=== PATIENT | female | born 1955 | race Two or more races ===

== ENCOUNTER 2016-12-15 18:26 | Emergency (ER) | payer SELFPAY ==
[2016-12-15] MEDS ORDERED: ONDANSETRON 4 MG/2ML 2 ML VIAL ONE (19:12)
[2016-12-15] MEDS ORDERED: SODIUM CHLORIDE 0.9% 500 ML ONE (19:12)
[2016-12-15] MEDS ORDERED: FAMOTIDINE 10 MG/ML 2ML VIAL ONE (19:12)
[2016-12-15] MEDS ORDERED: MAALOX/LIDO2%VISC/SIMETHICONE 40 ML BOT ONE (19:12)
[2016-12-15 19:44] LABS: URINE BILIRUBIN NEGATIVE (NEGATIVE); URINE BLOOD 3+ (NEGATIVE); URINE GLUCOSE (UA) NEGATIVE (NEGATIVE); URINE LEUKOCYTE ESTERASE 1+ (NEGATIVE); URINE NITRITE POSITIVE (NEGATIVE); URINE PROTEIN NEGATIVE (NEGATIVE); URINE UROBILINOGEN NORMAL (0-1 mg/dl)
[2016-12-15 19:45] LABS: ABSOLUTE NEUTROPHIL COUNT 4.9 K/mm3 (1.8-7.7); BASO # 0.1 K/mm3 (0.0-0.2); BASO % 0.6 % (0.2-1.0); EOS # 0.3 (0.0-0.5); EOS % 3.2 % (0.9-2.9); HEMATOCRIT 32.6 % (37.0-47.0); HEMOGLOBIN 10.6 gm/l (12.0-16.0); IMM NEUT% 0.3 % (0-1); LYMPH # 1.5 (1.0-4.8); LYMPH % 19.2 % (15-45); MEAN CELL VOLUME 82.1 fl (81.0-99.0); MEAN CORPUSCULAR HEMOGLOBIN 26.7 pg (27.0-31.0); MEAN CORPUSCULAR HGB CONC 32.5 g/dl (33.0-37.0); MEAN PLATELET VOLUME 8.8 fl (7.4-10.4); MONO # 1.1 (0.0-0.8); MONO % 13.8 % (4-12); NEUT % 62.9 % (43-75); PLATELET COUNT 484 K/mm3 (130-400); RED CELL DISTRIBUTION WIDTH 19.5 % (11.5-14.5)
[2016-12-15 19:46] LABS: URINE APPEARANCE CLEAR; URINE COLOR YELLOW
[2016-12-15 20:00] LABS: URINE BACTERIA 4+; URINE EPITHELIAL CELLS 0 /hpf
[2016-12-15 20:05] LABS: TROPONIN I 0.02 ng/ml (0.0-0.06)
--- NOTE | 2016-12-15 20:05 | RAD ---
Name: SAMMY COLLINS Exam: Two-view chest Comparison: None Clinical history: Body aches and abdominal pain Findings: 2 views of the chest are submitted. Heart, mediastinum and hilar structures are normal. There is no failure, infiltrate, pleural effusion or pneumothorax. There are degenerative changes of the right shoulder. Small hiatal hernia is suspected. There is a mild broad levoscoliosis of lower thoracic spine. 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 Impression: 1. No acute cardiopulmonary process 2. Small hiatal hernia
[2016-12-15 20:09] LABS: CKMB ISOENZYME 2.4 ng/ml (0.6-6.3)
[2016-12-15 20:10] LABS: ALB/GLOB RATIO 0.8 (>1.0); ALBUMIN 3.3 gm/dL (3.5-5.7); CALCIUM 8.9 mg/dL (8.6-10.3)
[2016-12-15] MEDS ORDERED: CEPHALEXIN 500 MG CAPSULE ONE (20:54)
[2016-12-15] MEDS ORDERED: DEXAMETHASONE SOD PHOS 10 MG/1 ML VIAL ONE (20:54)
== END 2016-12-15 21:26 | disposition home or self-care (01) ==
LOC: ED 18:26
DX: K29.70 Gastritis, unspecified, without bleeding (principal); N39.0 Urinary tract infection, site not specified; M79.1 Myalgia; M06.9 Rheumatoid arthritis, unspecified
CPT/HCPCS: 83690; 85025; 82550; 82553; 87086; 80053; 87186; 84484; 81001; 71020; 96375; 99284 ×2; 96374; 96361 ×2; 82962; 93005; A9270 ×2; J1100; J2405; J7040